=== PATIENT | female | born 1965 ===

== ENCOUNTER 2017-12-04 17:58 | Emergency (ER) | payer OTHER ==
[2017-12-04 18:35] VITALS: BP 126/77; PULSE 82; RESP 16; TEMP 98.2; O2SAT 100
--- NOTE | 2017-12-04 19:57 | ED PDOC ---
HPI: General Adult Time Seen by Provider: 12/04/17 19:30 Chief Complaint (Nursing): Back Pain Chief Complaint (Provider): Front rib pain History Per: Patient History/Exam Limitations: no limitations Onset/Duration Of Symptoms: Days (6) Current Symptoms Are (Timing): Still Present Additional Complaint(s): Pt. with pain to the fronta rib. Pain only present on movement, cough, and touch. No pain on sitting still. No pain on exertion. No dyspnea, abd pain, nausea, vomit, diarrhea. Pt. states had a cough with congestion for 1 week, but gone now. No weakness, fever. No leg pain. No long distance travel. No hormone use. Past Medical History Reviewed: Nursing Documentation, Vital Signs Vital Signs: Last Vital Signs Temp 98.2 F 12/04/17 18:33 Pulse 82 12/04/17 18:33 Resp 16 12/04/17 18:33 BP 126/77 12/04/17 18:33 Pulse Ox 100 12/04/17 19:59 - Medical History PMH: No Chronic Diseases - Surgical History Surgical History: No Surg Hx - Family History Family History: States: Unknown Family Hx - Social History Current smoker - smoking cessation education provided: No Alcohol: None Drugs: Denies - Allergies Allergies/Adverse Reactions: Allergies Allergy/AdvReac Type Severity Reaction Status Date / Time ibuprofen [From Advil] Allergy ANAPHYLAXIS Verified 12/04/17 18:33 Review of Systems Constitutional: Negative for: Fever, Weakness ENT: Positive for: Nose Pain, Nose Discharge, Nose Congestion Cardiovascular: Positive for: Chest Pain (wall). Negative for: Edema, Light Headedness Respiratory: Positive for: Cough. Negative for: Shortness of Breath, Sputum Gastrointestinal: Negative for: Nausea, Vomiting, Abdominal Pain Musculoskeletal: Negative for: Neck Pain, Shoulder Pain, Arm Pain, Back Pain Skin: Negative for: Rash Neurological: Negative for: Weakness Physical Exam - Reviewed Nursing Documentation Reviewed: Yes Vital Signs Reviewed: Yes - Physical Exam Appears: Positive for: Non-toxic, No Acute Distress Head Exam: Positive for: ATRAUMATIC, NORMAL INSPECTION, NORMOCEPHALIC Skin: Positive for: Normal Color, Warm, DRY ENT: Positive for: Normal ENT Inspection Neck: Positive for: Normal, Painless ROM, Supple Cardiovascular/Chest: Positive for: Regular Rate, Rhythm. Negative for: Chest Non Tender (Frontal lower rib left with tenderness), Edema Respiratory: Positive for: CNT, Normal Breath Sounds Gastrointestinal/Abdominal: Positive for: Normal Exam, Bowel Sounds, Soft. Negative for: Tenderness Back: Positive for: Normal Inspection. Negative for: L CVA Tenderness, R CVA Tenderness Extremity: Positive for: Normal ROM. Negative for: Tenderness, Pedal Edema Neurologic/Psych: Positive for: Alert, Oriented - ECG O2 Sat by Pulse Oximetry: 100 Pulse Ox Interpretation: Normal - Radiology X-Ray: Interpreted by Me, Viewed By Me X-Ray Interpretation: No Acute Disease - Progress ED Course And Treament: 2115: Stable. Pain free. Walking around. Refusing ekg. Aware of possible findings from chest wall pain in EKG that can be deadly or cause decreased functioning. Pt. is aaox3. Has capacity to make decisions. Disposition - Clinical Impression Clinical Impression: Rib pain - Patient ED Disposition Is Patient to be Admitted: No Counseled Patient/Family Regarding: Studies Performed, Diagnosis, Need For Followup - Disposition Referrals: [facility] [Outside] - 12/05/17 Disposition: Routine/Home Disposition Time: 21:18 Condition: STABLE Additional Instructions: You are aware of possible findings from chest wall pain in EKG that can be deadly or cause decreased functioning. You are refusing and taking your own risk. Instructions: Chest Wall Pain (ED)
--- NOTE | 2017-12-05 11:11 | RAD ---
HISTORY: Pain left flank pain COMPARISON: None TECHNIQUE: Chest PA and lateral FINDINGS: LUNGS: No active pulmonary disease. PLEURA: No significant pleural effusion identified. No pneumothorax apparent. CARDIOVASCULAR: Normal. OSSEOUS STRUCTURES: No significant abnormalities. VISUALIZED UPPER ABDOMEN: Normal. OTHER FINDINGS: None. IMPRESSION: No active disease. Concordant results with the preliminary interpretation rendered by the emergency department physician procedure.
== END 2017-12-04 21:34 | disposition home or self-care (01) ==
LOC: H.ER 17:58
DX: R07.82 Intercostal pain (principal); Z88.6 Allergy status to analgesic agent